=== PATIENT | female | born 2000 | race Caucasian/White ===

== ENCOUNTER 2019-12-14 10:47 | Emergency (ER) | payer MEDICAID ==
[~2019-12-14] VITALS: Ht 172.7 cm; Wt 82.0 kg
[2019-12-14] MEDS ORDERED: PENICILLIN G BENZATHINE 1,200,000 UNITS/2ML SYR IM ONE (11:15)
[2019-12-14] MEDS ORDERED: DEXAMETHASONE 4MG/ML 1ML VIAL IM ONE (11:15)
[2019-12-14] MEDS ORDERED: KETOROLAC 60MG/2ML VIAL IM ONE (11:15)
[2019-12-14 12:10] VITALS: BP 120/80
== END 2019-12-14 12:12 | disposition home or self-care (01) ==
LOC: ER 11:18
DX: J03.90 Acute tonsillitis, unspecified (principal)
CPT/HCPCS: 87070; 87430; 96372; 99284; J0561; J1100; J1885

== ENCOUNTER 2020-05-13 08:38 | Emergency (ER) | payer BC, MEDICAID ==
[2020-05-13 08:55] VITALS: BP 122/89
[2020-05-13] MEDS ORDERED: KETOROLAC 30MG/ML VIAL IM ONE (09:00)
[2020-05-13] MEDS ORDERED: DEXAMETHASONE 4MG/ML 1ML VIAL IM SCH (09:00)
[2020-05-13] MEDS ORDERED: AMOX-494 MT (09:01)
[2020-05-13] MEDS ORDERED: IBUP-2029 MT (09:01)
== END 2020-05-13 09:48 | disposition home or self-care (01) ==
LOC: ER 08:38
DX: J02.9 Acute pharyngitis, unspecified (principal)
CPT/HCPCS: 96372; 99284; J1100; J1885

== ENCOUNTER 2024-12-06 12:07 | Emergency (ER) | payer BC, MEDICAID, OTHER ==
[~2024-12-06] VITALS: Ht 165.1 cm; Wt 85.0 kg
[~2024-12-06 12:07] MED LIST: AMOX-494 MT; IBUP-1455 MT
[2024-12-06 12:10] VITALS: RESP 16; TEMP 36.8; O2SAT 100
[2024-12-06] MEDS: ONDANSETRON 4MG ODT PO ONE (13:24)
[2024-12-06] MEDS: BACITRACIN ZINC OINT UDPKT TOP ONE (13:24)
[2024-12-06] MEDS: HYDROCODONE/ACETAMINOPHEN 5/325MG TABLET PO ONE (13:25)
[2024-12-06] MEDS: IBUPROFEN 400MG TABLET PO ONE (13:25)
[2024-12-06] MEDS ORDERED: TOPUD PO (13:34)
[2024-12-06] MEDS ORDERED: IBUP-2028 MT (13:34)
[2024-12-06 14:09] VITALS: BP 120/81; PULSE 75; O2SAT 99
== END 2024-12-06 14:16 | disposition home or self-care (01) ==
LOC: ER 12:07
DX: S80.11XA Contusion of right lower leg, initial encounter (principal); S80.12XA Contusion of left lower leg, initial encounter; X58.XXXA Exposure to other specified factors, initial encounter; Y92.89 Other specified places as the place of occurrence of the external cause; Y99.0 Civilian activity done for income or pay
CPT/HCPCS: 99284; 73590; 73610; Q0162